=== PATIENT | female | born 1970 | race Two or more races ===

== ENCOUNTER 2017-10-03 15:21 | Outpatient (CLI) | payer OTHER ==
[~2017-10-03 15:21] MED LIST: ALBUTEROL 0.083% IH; CLOTRIMAZOLE AF TOP; HYZAAR 50-12.51 EACH PO; HYZAAR 50/12.51 TAB PO; NORFLEX30 MG/ML IJ; TORADOL60 MG IM; TUSNEL LIQUID178 ML PO; VENTOLIN HFA18 GM IH; ZITHROMAX500 MG PO; ZYRTEC10 MG PO
== END 2017-10-03 16:16 | disposition home or self-care (01) ==
LOC: MAMO-SONO 15:21
DX: R10.2 Pelvic and perineal pain (principal); N60.11 Diffuse cystic mastopathy of right breast; N60.12 Diffuse cystic mastopathy of left breast; Z12.31 Encounter for screening mammogram for malignant neoplasm of breast

== ENCOUNTER → 2017-10-24 | Outpatient (CLI) | payer OTHER ==
[~2017-10-24] VITALS: Ht 152.4 cm; Wt 68.0 kg
== END | disposition home or self-care (01) ==
LOC: PPHC 16:57
DX: M50.30 Other cervical disc degeneration, unspecified cervical region (principal); M54.2 Cervicalgia

== ENCOUNTER → 2017-10-27 | Emergency (ER) | payer OTHER ==
[~2017-10-27] VITALS: Ht 157.5 cm; Wt 68.0 kg
== END | disposition home or self-care (01) ==
LOC: ER 15:10
DX: N83.292 Other ovarian cyst, left side (principal)

== ENCOUNTER → 2017-10-29 | Outpatient (CLI) | payer OTHER | END | disposition home or self-care (01) | LOC: TOM 12:58 | DX: R10.32 Left lower quadrant pain (principal); R19.4 Change in bowel habit; R14.0 Abdominal distension (gaseous); Z80.0 Family history of malignant neoplasm of digestive organs ==

== ENCOUNTER → 2017-12-01 | Outpatient (CLI) | payer OTHER ==
[~2017-12-01] VITALS: Ht 152.4 cm; Wt 66.2 kg
== END | disposition home or self-care (01) ==
LOC: PPHC 11:57
DX: M79.671 Pain in right foot (principal)

== ENCOUNTER → 2017-12-31 07:30 | Outpatient (CLI) | payer OTHER | END | disposition home or self-care (01) | LOC: LAB 07:30 | DX: R51 Headache (principal); R10.2 Pelvic and perineal pain ==

== ENCOUNTER 2017-12-31 08:53 | Outpatient (CLI) | payer OTHER | END 2017-12-31 16:24 | disposition home or self-care (01) | LOC: SONOGRAMA 08:53 | DX: R10.2 Pelvic and perineal pain (principal) ==

== ENCOUNTER 2018-03-09 16:03 | Outpatient (CLI) | payer OTHER ==
[~2018-03-09] VITALS: Ht 157.5 cm; Wt 63.5 kg
== END 2018-03-09 16:20 | disposition home or self-care (01) ==
LOC: OFIC 805 16:03
DX: J32.0 Chronic maxillary sinusitis (principal); R09.81 Nasal congestion

== ENCOUNTER 2018-03-26 08:07 | Outpatient (CLI) | payer OTHER | END 2018-03-26 17:00 | disposition home or self-care (01) | LOC: RAD 08:07 | DX: J01.90 Acute sinusitis, unspecified (principal) ==

== ENCOUNTER 2018-07-21 16:19 | Emergency (ER) | payer OTHER ==
[~2018-07-21] VITALS: Ht 152.4 cm; Wt 62.6 kg
[2018-07-21] MEDS ORDERED: COZAAR100 MG (16:34)
== END 2018-07-21 16:50 | disposition home or self-care (01) ==
LOC: ER 16:19
DX: I16.0 Hypertensive urgency (principal); I10 Essential (primary) hypertension

== ENCOUNTER 2018-08-17 07:41 | Outpatient (CLI) | payer OTHER ==
[~2018-08-17 07:41] MED LIST changes: +COZAAR100 MG
== END 2018-08-17 07:56 | disposition home or self-care (01) ==
LOC: LAB 07:41
DX: Z00.00 Encounter for general adult medical examination without abnormal findings (principal); G43.711 Chronic migraine without aura, intractable, with status migrainosus; E55.9 Vitamin D deficiency, unspecified; I63.89 Other cerebral infarction; E03.8 Other specified hypothyroidism

== ENCOUNTER 2018-09-23 11:01 | Outpatient (CLI) | payer OTHER | END 2018-09-23 11:24 | disposition home or self-care (01) | LOC: LAB 11:01 | DX: N39.0 Urinary tract infection, site not specified (principal) ==

== ENCOUNTER 2018-09-23 11:19 | Outpatient (CLI) | payer OTHER | END 2018-09-23 14:53 | disposition home or self-care (01) | LOC: RAD 11:19 | DX: R10.2 Pelvic and perineal pain (principal); G44.89 Other headache syndrome | CPT/HCPCS: 70544 ==

== ENCOUNTER 2018-11-25 14:49 | Inpatient (IN) | payer OTHER ==
[~2018-11-25] VITALS: Ht 154.9 cm; Wt 68.0 kg
--- NOTE | 2018-11-25 14:54 | NUR ---
PTE REFIERE QUE SIENTE LA PRESION AL SE HANSEL S/V MANUALES 200/120 SE REALIZA EKG Y SE PRESENTA A LA ANICETO ALICIA SE UBICA PTE EN MONITOR CARDIACO Y OXYMETRIA PULSO EN CAMA CON BARANDAS ELEVADA Y TIMBRE ACCESIBLE. SE OBSERVA PTE EL LADO DE LA JOSE ELIAS SARA VIRADA.
--- NOTE | 2018-11-25 15:52 | NUR ---
PACIENTE CON DOLOR DE IGNACIO ,REFIERE PACIENTE "KYLE CALAMBRE EN EL AREA DE IGNACIO".EVALUADA POR LA . SE HANSEL MUESTRAS DE RICHARD Y SE ENVIAN LABORATORIO.SE REALIZA CT DE IGNACIO.SE TRANSFIERE AL AREA DE CHEST PAIN POR PRESION CARLOS ALBERTO Y SE CONECTA A MONITOR CARDIACO.SE ADMINISTRA MEDICAMENTO PARA LA PRESION,SE OBSERVA POR CAMBIOS SIGNIFICATIVOS.
--- NOTE | 2018-11-25 16:15 | NUR ---
REFIERE "SON KYLE CONTRACCIONES EN LA LADO SARA DE LA JOSE ELIAS Y LLEGAN HASTA EL LADO SARA DE LA JOSE ELIAS". SE LE REFIERE ESTO A LA ANICETO. ALICIA. BP 170/90 EN ESTOS MOMENTOS. EN POSICION FOWLERS AL MOMENTO. SE MANTIENE EN OBSERVACION.
--- NOTE | 2018-11-25 22:56 | NUR ---
10:15PM PACIENTE REFIERE TENER MUCHO DOLOR DE IGNACIO, SE LE HANSEL PRESIONES MANUALES 170/[address] DAILEY EL MIMSO ORDENA MEDICAMENTOS PARA LA PRESION CARLOS ALBERTO Y EL DOLOR DE IGNACIO. SE ORIENTA A PACIENTE SOBRE EL TRATAMIENTO MEDICO SE LE ADMINISTRAN MEDICAMENTOS NEHAL ORDEN MEDICA BAJO MEDIDAS ASEPTICAS. 10:20 SE BAJA A PACIENTE A MRI JUNTO CON ESCOLTA RN Y FAMILIAR EN [place]. PACIENTE AL MOEMTO ESTABLE ENTRE SPEARS CONDICION.
--- NOTE | 2018-11-25 23:35 | NUR ---
2330- SE RECIBEFEMINA ALERTA Y ORIENTADA POR MARIAN ESFERAS, EN [place] DE ESTUDIO MRI. SE COLOCA EN CAMA CON BARANDAS ELEVADAS Y SEGURAS. SE CONECTA A MONITOR CARDAIACO CON OXIMETRIA DE PULSO. AREA DE VENOPUNCION RAFFY DE EDEMA O ENROJECIMIENTO. REFIERE DOLOR DE IGNACIO MODERADO, SE NOTIFICA A DR. TORRES QUIEN PERMINTE QUE PACIENTE TOME MEDICAMENTO DE SPEARS PROPIEDAD PARA LA MIGRANA. SE MANTIENE EN ESPERA DE RE-EVALUZACION MEDICA.
--- NOTE | 2018-11-26 07:10 | NUR ---
PACIENTE ALERTA Y ORIENTADA X3. EN ARMANI #16 ACOSTADA CON BARANDAS ELEVADAS Y INTERCOM ACCESIBLE. CONCETADA A MONITOR CARDIACO Y OXIMETRIA DE PULSO. H/L PATENTE Y RAFFY DE EDEMA Y ERITEMA EN MANO R+. PACIENTE ESTABLE AL MOMENTO. REFIERE TENER DOLOR DE IGNACIO PARIS QUE LOS MEDICAMENTOS QUE LE OFRECEN EN EL HOSPITAL NO LE FUNCIONAN. REFIERE SULTANA TIENE SPEARS MEDICAMENTO. SE NOTIFICO A DR. ALTAMIRANO. SE MANTIENE BAJO OBSERVACION POR CAMBIOS SIGNIFICATIVOS PENDIENTE VISITA DE DR. GARZA CARTWRIGHT.
--- NOTE | 2018-11-26 10:52 | NUR ---
DR. GREG CARTWRIGHT EVALUO A LA PACIENTE.
--- NOTE | 2018-11-26 13:16 | NUR ---
SE NOTIFICO VIA TELEFONICA A DR. RONNI KWONG BP MANUAL DE PACIENTE EN 170/90MMHG Y DOLOR DE IGNACIO YING Y MEDICO ORDENA ADMINISTRAR PROCARDIA 10MG STAT. SE LLAMA A DR. GREG CATRWRIGHT PARA NOTIFICAR DOLOR DE IGNACIO DE PACIENTE Y MEDICO REFIERE ADMINISTRAR 2 FIORICET PO Q6HR PRN PARA EL DOLOR. SE ADMINISTRA MEDICAMENTOS NEHAL ORDEN MEDICA. SE MANTIENE BAJO OBSERVACION POR CAMBIOS SIGNIFICATIVOS.
--- NOTE | 2018-11-26 16:31 | NUR ---
PACIENTE ALERTA Y ORIENTADA X3. EN ARMANI #16 ACOSTADA CON BARANDAS ELEVADAS Y TIMBRE ACCESIBLE, CONCETADA A MONITOR CARDIACO Y OXIMETRIA DE PULSO. H/L PATENTE Y RAFFY DE EDEMA Y ERITEMA EN MANO R+. PACIENTE ESTABLE AL MOMENTO. REFIERE TENER DOLOR DE IGNACIO PARIS QUE LOS MEDICAMENTOS QUE LE OFRECEN EN EL HOSPITAL NO LE FUNCIONAN. REFIERE SULTANA TIENE SPEARS MEDICAMENTO. SE NOTIFICO A DR. ALTAMIRANO. SE MANTIENE BAJO OBSERVACION POR CAMBIOS SIGNIFICATIVOS PENDIENTE VISITA DE DR. TORSTEN CHAN.
[2018-11-30] MEDS ORDERED: LOSARTAN POTAS100 MG PO (09:22)
[2018-11-30] MEDS ORDERED: NIFEDIPINE ER30 MG PO (09:23)
[2018-11-30] MEDS ORDERED: AMITRIPTYLINE H50 MG PO (09:24)
[2018-11-30] MEDS ORDERED: GABAPENTIN600 MG PO (09:24)
[2018-11-30] MEDS ORDERED: PROPRANOLOL HCL60 M1 PO (09:26)
== END 2018-11-30 10:27 | disposition home or self-care (01) | DRG 305 ==
LOC: ER 14:49 → MEDI 11-26 23:01 → MEDJ 11-26 23:01 → MEDI 11-27 00:10 → MEDJ 11-27 00:11
PROVIDERS: ADMIT Internal Medicine
PROC: B246ZZZ Ultrasonography of Right and Left Heart (ICD-10-PCS; principal; 2018-11-27)
PROC: B82 Imaging, Eye, Computerized Tomography (CT Scan) (ICD-10-PCS; 2018-11-30)
PROC: B827ZZZ Computerized Tomography (CT Scan) of Bilateral Eyes (ICD-10-PCS; 2018-11-30)
DX: I16.0 Hypertensive urgency (principal); R51 Headache; H57.13 Ocular pain, bilateral
CPT/HCPCS: 70545

== ENCOUNTER → 2018-12-11 | Outpatient (CLI) | payer OTHER ==
[~2018-12-11] MED LIST changes: +AMITRIPTYLINE H50 MG PO; +GABAPENTIN600 MG PO; +LOSARTAN POTAS100 MG PO; +NIFEDIPINE ER30 MG PO; +PROPRANOLOL HCL60 M1 PO
== END | disposition home or self-care (01) ==
LOC: MAMO-SONO 07:55
DX: Z12.31 Encounter for screening mammogram for malignant neoplasm of breast (principal)

== ENCOUNTER → 2018-12-16 | Outpatient (CLI) | payer OTHER | END | disposition home or self-care (01) | LOC: SONOGRAMA 09:56 | DX: R10.2 Pelvic and perineal pain (principal) ==

== ENCOUNTER → 2018-12-16 | Outpatient (CLI) | payer OTHER | END | disposition home or self-care (01) | LOC: LAB 10:04 | DX: N95.1 Menopausal and female climacteric states (principal) ==

== ENCOUNTER 2019-06-18 07:47 | Outpatient (CLI) | payer OTHER | END 2019-06-18 15:19 | disposition home or self-care (01) | LOC: LAB 07:47 | DX: Z13.6 Encounter for screening for cardiovascular disorders (principal); I10 Essential (primary) hypertension; Z12.11 Encounter for screening for malignant neoplasm of colon; Z00.00 Encounter for general adult medical examination without abnormal findings ==

== ENCOUNTER → 2019-08-23 17:08 | Outpatient (CLI) | payer OTHER | END | disposition home or self-care (01) | LOC: LAB 17:08 | DX: N39.0 Urinary tract infection, site not specified (principal) ==

== ENCOUNTER → 2019-09-15 07:57 | Outpatient (CLI) | payer OTHER | END | disposition home or self-care (01) | LOC: LAB 07:57 | DX: E78.49 Other hyperlipidemia (principal); R42 Dizziness and giddiness; E55.9 Vitamin D deficiency, unspecified; Z00.00 Encounter for general adult medical examination without abnormal findings ==

== ENCOUNTER → 2019-10-20 18:10 | Outpatient (CLI) | payer OTHER | END | disposition home or self-care (01) | LOC: RAD 18:10 | DX: R05 Cough (principal); R07.89 Other chest pain ==

== ENCOUNTER 2020-03-13 07:42 | Outpatient (CLI) | payer OTHER | END 2020-03-13 07:48 | disposition home or self-care (01) | LOC: LAB 07:42 | PROVIDERS: ATTEND Obstetrics & Gynecology | DX: D64.89 Other specified anemias (principal); Z12.11 Encounter for screening for malignant neoplasm of colon; E03.8 Other specified hypothyroidism; N95.1 Menopausal and female climacteric states; I10 Essential (primary) hypertension; C51.9 Malignant neoplasm of vulva, unspecified; N30.00 Acute cystitis without hematuria; A64 Unspecified sexually transmitted disease; R97.8 Other abnormal tumor markers; R79.89 Other specified abnormal findings of blood chemistry; E55.9 Vitamin D deficiency, unspecified ==

== ENCOUNTER → 2020-03-13 | Outpatient (CLI) | payer OTHER | END | disposition home or self-care (01) | LOC: MAMO-SONO 08:17 | PROVIDERS: ATTEND Obstetrics & Gynecology | DX: Z12.31 Encounter for screening mammogram for malignant neoplasm of breast (principal); N60.11 Diffuse cystic mastopathy of right breast; N60.12 Diffuse cystic mastopathy of left breast ==

== ENCOUNTER → 2020-06-27 | Outpatient (CLI) | payer OTHER | END | disposition home or self-care (01) | LOC: PPH VACUNA | DX: Z23 Encounter for immunization (principal) ==

== ENCOUNTER 2020-09-19 16:01 | Outpatient (CLI) | payer OTHER | END 2020-09-19 18:00 | disposition home or self-care (01) | LOC: PPH VACUNA 16:01 | DX: Z23 Encounter for immunization (principal) ==

== ENCOUNTER 2020-09-27 16:23 | Outpatient (CLI) | payer OTHER | END 2020-09-27 16:40 | disposition home or self-care (01) | LOC: OFIC 805 16:23 | PROVIDERS: ATTEND Otolaryngology | DX: G44.89 Other headache syndrome (principal); G50.0 Trigeminal neuralgia; H92.02 Otalgia, left ear; G44.009 Cluster headache syndrome, unspecified, not intractable ==

== ENCOUNTER 2020-12-05 07:35 | Outpatient (CLI) | payer OTHER | END 2020-12-05 08:03 | disposition home or self-care (01) | LOC: LAB 07:35 | PROVIDERS: ATTEND Internal Medicine Cardiovascular Disease | DX: I11.9 Hypertensive heart disease without heart failure (principal); E78.1 Pure hyperglyceridemia; E11.9 Type 2 diabetes mellitus without complications ==

== ENCOUNTER 2020-12-11 07:59 | Outpatient (CLI) | payer OTHER | END 2020-12-11 08:08 | disposition home or self-care (01) | LOC: LAB 07:59 | PROVIDERS: ATTEND Internal Medicine Cardiovascular Disease | DX: I11.9 Hypertensive heart disease without heart failure (principal); E78.89 Other lipoprotein metabolism disorders; E11.9 Type 2 diabetes mellitus without complications ==

== ENCOUNTER 2020-12-18 16:13 | Outpatient (CLI) | payer OTHER | END 2020-12-18 16:35 | disposition home or self-care (01) | LOC: SONOGRAMA 16:13 | PROVIDERS: ATTEND Internal Medicine Cardiovascular Disease | DX: Q61.8 Other cystic kidney diseases (principal); N18.2 Chronic kidney disease, stage 2 (mild) ==

== ENCOUNTER 2021-02-14 08:24 | Outpatient (CLI) | payer OTHER | END 2021-02-14 08:35 | disposition home or self-care (01) | LOC: MAMO-SONO 08:24 | PROVIDERS: ATTEND Obstetrics & Gynecology | DX: N63.15 Unspecified lump in the right breast, overlapping quadrants (principal); N63.21 Unspecified lump in the left breast, upper outer quadrant ==

== ENCOUNTER → 2021-02-14 | Outpatient (CLI) | payer OTHER | END | disposition home or self-care (01) | LOC: LAB 08:06 | PROVIDERS: ATTEND Obstetrics & Gynecology | DX: K22.0 Achalasia of cardia (principal); D50.8 Other iron deficiency anemias; E03.8 Other specified hypothyroidism ==

== ENCOUNTER 2021-05-16 07:47 | Outpatient (CLI) | payer OTHER | END 2021-05-16 15:00 | disposition home or self-care (01) | LOC: LAB 07:47 | PROVIDERS: ATTEND Neuromusculoskeletal Medicine & OMM | DX: G62.89 Other specified polyneuropathies (principal); R20.2 Paresthesia of skin; E03.8 Other specified hypothyroidism ==

== ENCOUNTER 2021-05-29 13:40 | Outpatient (CLI) | payer OTHER | END 2021-05-29 13:48 | disposition home or self-care (01) | LOC: MRI 13:40 | PROVIDERS: ATTEND Neuromusculoskeletal Medicine & OMM | DX: M50.20 Other cervical disc displacement, unspecified cervical region (principal); M50.30 Other cervical disc degeneration, unspecified cervical region; I67.2 Cerebral atherosclerosis; G40.909 Epilepsy, unspecified, not intractable, without status epilepticus; G43.009 Migraine without aura, not intractable, without status migrainosus; G44.40 Drug-induced headache, not elsewhere classified, not intractable | CPT/HCPCS: 70553; 72141 ==

== ENCOUNTER 2021-06-18 16:45 | Emergency (ER) | payer OTHER ==
[~2021-06-18] VITALS: Ht 154.9 cm; Wt 62.6 kg
[2021-06-18] MEDS ORDERED: TOPAMAX50 MG PO (17:13)
[2021-06-18] MEDS ORDERED: LOSARTAN-HCTZ1 EAC1 PO (17:13)
[2021-06-18] MEDS ORDERED: ZANAFLEX4 M1 PO (17:14)
[2021-06-18] MEDS ORDERED: NEURONTIN300 MG PO (17:14)
== END 2021-06-18 21:42 | disposition home or self-care (01) ==
LOC: ER 16:45
DX: R42 Dizziness and giddiness (principal); R41.0 Disorientation, unspecified; R40.4 Transient alteration of awareness

== ENCOUNTER 2021-07-10 08:00 | Outpatient (CLI) | payer OTHER ==
[~2021-07-10 08:00] MED LIST changes: +LOSARTAN-HCTZ1 EAC1 PO; +NEURONTIN300 MG PO; +TOPAMAX50 MG PO; +ZANAFLEX4 M1 PO
== END 2021-07-10 08:30 | disposition home or self-care (01) ==
LOC: PPH VACUNA 08:00
PROVIDERS: ATTEND Emergency Medicine Pediatric Emergency Medicine
DX: Z23 Encounter for immunization (principal)

== ENCOUNTER 2021-08-29 08:00 | Outpatient (CLI) | payer OTHER | END 2021-08-29 08:30 | disposition home or self-care (01) | LOC: PPH VACUNA 08:00 | PROVIDERS: ATTEND Emergency Medicine Pediatric Emergency Medicine | DX: Z23 Encounter for immunization (principal) ==

== ENCOUNTER 2021-10-12 07:42 | Outpatient (CLI) | payer OTHER | END 2021-10-12 07:47 | disposition home or self-care (01) | LOC: LAB 07:42 | PROVIDERS: ATTEND Internal Medicine Cardiovascular Disease | DX: I11.9 Hypertensive heart disease without heart failure (principal); E78.00 Pure hypercholesterolemia, unspecified; E03.8 Other specified hypothyroidism ==

== ENCOUNTER 2021-10-12 17:18 | Emergency (ER) | payer OTHER ==
[~2021-10-12] VITALS: Ht 157.5 cm; Wt 63.5 kg
== END 2021-10-12 23:14 | disposition home or self-care (01) ==
LOC: ER 17:18
DX: R10.84 Generalized abdominal pain (principal)
CPT/HCPCS: 74177; Q9965

== ENCOUNTER 2022-01-23 14:06 | Outpatient (CLI) | payer OTHER | END 2022-01-23 14:28 | disposition home or self-care (01) | LOC: MAMO-SONO 14:06 | PROVIDERS: ATTEND General Practice | DX: N64.4 Mastodynia (principal) ==

== ENCOUNTER → 2022-01-25 07:48 | Outpatient (CLI) | payer OTHER | END | disposition home or self-care (01) | LOC: LAB 07:48 | PROVIDERS: ATTEND General Practice | DX: E78.5 Hyperlipidemia, unspecified (principal); Z00.00 Encounter for general adult medical examination without abnormal findings; E55.9 Vitamin D deficiency, unspecified; N39.0 Urinary tract infection, site not specified; R42 Dizziness and giddiness; R10.2 Pelvic and perineal pain; R10.9 Unspecified abdominal pain; M79.0 Rheumatism, unspecified ==

== ENCOUNTER 2022-02-08 12:12 | Outpatient (CLI) | payer OTHER | END 2022-02-08 12:20 | disposition home or self-care (01) | LOC: SONOGRAMA 12:12 | PROVIDERS: ATTEND Surgery | DX: N60.11 Diffuse cystic mastopathy of right breast (principal); N60.12 Diffuse cystic mastopathy of left breast ==

== ENCOUNTER 2022-06-05 10:53 | Outpatient (CLI) | payer OTHER | END 2022-06-05 10:58 | disposition home or self-care (01) | LOC: PPH VACUNA 10:53 | PROVIDERS: ATTEND Emergency Medicine Pediatric Emergency Medicine | DX: Z23 Encounter for immunization (principal) ==

== ENCOUNTER 2022-06-05 10:54 | Outpatient (CLI) | payer OTHER | END 2022-06-05 11:00 | disposition home or self-care (01) | LOC: PPH VACUNA 10:54 | PROVIDERS: ATTEND Emergency Medicine Pediatric Emergency Medicine | DX: Z23 Encounter for immunization (principal) ==

== ENCOUNTER 2022-06-18 08:04 | Emergency (ER) | payer OTHER ==
[~2022-06-18] VITALS: Ht 154.9 cm; Wt 63.5 kg
[2022-06-18] MEDS ORDERED: GABAPENTIN100 MG PO (08:31)
[2022-06-18] MEDS ORDERED: NIFEDIPINE20 MG PO (08:32)
[2022-06-18] MEDS ORDERED: ZESTRIL20 MG PO (08:33)
== END 2022-06-18 16:10 | disposition home or self-care (01) ==
LOC: ER 08:04
DX: R51.9 Headache, unspecified (principal); R07.9 Chest pain, unspecified; M54.89 Other dorsalgia; I10 Essential (primary) hypertension; Z20.822 Contact with and (suspected) exposure to COVID-19

== ENCOUNTER 2022-07-23 15:44 | Outpatient (CLI) | payer OTHER ==
[~2022-07-23 15:44] MED LIST changes: +GABAPENTIN100 MG PO; +NIFEDIPINE20 MG PO; +ZESTRIL20 MG PO
== END 2022-07-23 15:56 | disposition home or self-care (01) ==
LOC: MRI 15:44
PROVIDERS: ATTEND General Practice
DX: M54.16 Radiculopathy, lumbar region (principal)
CPT/HCPCS: 72148

== ENCOUNTER 2022-09-12 07:58 | Outpatient (CLI) | payer OTHER | END 2022-09-12 08:06 | disposition home or self-care (01) | LOC: LAB 07:58 | PROVIDERS: ATTEND Internal Medicine Rheumatology | DX: M06.9 Rheumatoid arthritis, unspecified (principal); M32.19 Other organ or system involvement in systemic lupus erythematosus; M81.0 Age-related osteoporosis without current pathological fracture; E03.9 Hypothyroidism, unspecified; M33.12 Other dermatomyositis with myopathy; I10 Essential (primary) hypertension; E78.00 Pure hypercholesterolemia, unspecified ==

== ENCOUNTER 2023-01-16 09:55 | Outpatient (CLI) | payer OTHER | END 2023-01-16 10:24 | disposition home or self-care (01) | LOC: LAB 09:55 | PROVIDERS: ATTEND Emergency Medicine Pediatric Emergency Medicine | DX: U07.1 COVID-19 (principal); B34.1 Enterovirus infection, unspecified ==

== ENCOUNTER 2023-01-17 08:19 | Outpatient (CLI) | payer OTHER | END 2023-01-17 08:20 | disposition home or self-care (01) | LOC: NUCLEAR 08:19 | PROVIDERS: ATTEND Internal Medicine Cardiovascular Disease | DX: I25.10 Atherosclerotic heart disease of native coronary artery without angina pectoris (principal) ==

== ENCOUNTER 2023-04-17 08:10 | Emergency (ER) | payer OTHER ==
[~2023-04-17] VITALS: Ht 157.5 cm; Wt 62.6 kg
[2023-04-17] MEDS ORDERED: NIFEDIPINE20 MG PO (08:40)
[2023-04-17] MEDS ORDERED: DICLOFENAC SODI75 MG PO (11:45)
[2023-04-17] MEDS ORDERED: NORFLEX100MG PO (11:45)
== END 2023-04-17 11:58 | disposition home or self-care (01) ==
LOC: ER 08:10
DX: R10.32 Left lower quadrant pain (principal); Z20.822 Contact with and (suspected) exposure to COVID-19; I10 Essential (primary) hypertension